=== PATIENT | female | born 2000 | race Caucasian/White ===

== ENCOUNTER 2022-07-12 12:42 | Outpatient (CLI) | payer OTHER, SELFPAY ==
--- NOTE | 2022-07-12 13:00 | CRLHL7_ITS ---
For Patients: As a result of the Century Cures Act, medical imaging exams and procedure reports are released immediately into your electronic medical record. You may view this report before your referring provider. If you have questions, please contact your health care provider. INDICATION: First trimester scan, establish dates. TECHNIQUE: Real-time freire-scale imaging of the pelvis was performed. FINDINGS: Sonographic imaging demonstrates a single living intrauterine gestation. The embryo demonstrates a regular cardiac rate measuring 178 beats per minute. The embryo`s crown-rump length measurement of 3.2 cm corresponds to a gestational age of 10 weeks 1 day with a sonographic due date of 02/06/2023 . Small subchorionic hemorrhage measuring 3.2 x 0.5 x 0.6 centimeters IMPRESSION: Single live intrauterine gestation measuring 10 weeks 1 day with TODD of 02/06/2023 Small subchorionic hemorrhage measuring 3.3 x 0.5 x 0.6 Dictated by Jordana Brunner MD @ 07/12/2022 2:46:39 PM (Electronically Signed)
== END 2022-07-12 12:43 | disposition home or self-care (01) ==
LOC: US 12:43
PROVIDERS: Visit Provider Registered Nurse
DX: Z34.91 Encounter for supervision of normal pregnancy, unspecified, first trimester (principal); Z3A.10 10 weeks gestation of pregnancy
CPT/HCPCS: 76817

== ENCOUNTER 2022-07-12 15:09 | Outpatient (CLI) | payer OTHER, SELFPAY ==
[2022-07-12 19:06] LABS: Hepatitis B Surface Antigen* Negative (Negative)
[2022-07-12 19:16] LABS: HIV 1/2/P24 Combo Screen* Negative (Negative)
[2022-07-12 19:23] LABS: Hepatitis C Virus Antibody* Negative (Negative)
[2022-07-12 21:07] LABS: Chlamydia DNA Amplified* NOT DETECTED (No Detected); GC DNA Amplified* NOT DETECTED (No Detected)
[2022-07-14 17:17] LABS: Rapid Plasma Reagin (RPR) Non Reactive (Non Reactive)
[2022-07-14 18:03] LABS: Varicella-Zoster Virus Ab, IgG 98.6 IV
[2022-07-14 18:10] LABS: Rubella Antibody IgG 45.2 IU/mL
== END 2022-07-12 15:10 | disposition home or self-care (01) ==
PROVIDERS: Visit Provider Registered Nurse
DX: Z34.91 Encounter for supervision of normal pregnancy, unspecified, first trimester (principal); O20.9 Hemorrhage in early pregnancy, unspecified; Z3A.10 10 weeks gestation of pregnancy
CPT/HCPCS: 86592; 86703; 86762; 86787; 86803; 86850; 86900; 86901; 87086; 87340; 87491; 87591

== ENCOUNTER 2022-09-08 10:36 | Outpatient (CLI) | payer OTHER, SELFPAY | END 2022-09-08 10:37 | disposition home or self-care (01) | LOC: NFLDREF 10:37 | PROVIDERS: Visit Provider Registered Nurse | DX: Z34.92 Encounter for supervision of normal pregnancy, unspecified, second trimester (principal); Z3A.17 17 weeks gestation of pregnancy | CPT/HCPCS: 87086 ==

== ENCOUNTER 2022-09-20 11:55 | Outpatient (CLI) | payer OTHER, SELFPAY ==
--- NOTE | 2022-09-20 12:15 | CRLHL7_ITS ---
For Patients: As a result of the Century Cures Act, medical imaging exams and procedure reports are released immediately into your electronic medical record. You may view this report before your referring provider. If you have questions, please contact your health care provider. INDICATION: Evaluate anatomy. COMPARISON: 07/12/2022 TECHNIQUE: Real time freire scale imaging of the fetus was performed as well as color Doppler analysis of the umbilical vessels. FINDINGS: Sonographic imaging demonstrates a single living intrauterine gestation. Fetus demonstrates a regular cardiac rate of 157 beats per minute. Fetus has a breech position. The placenta lies anteriorly. The edge of the placenta appears to extend to the internal cervical os and possibly covers the os. Amniotic fluid volume appears normal. Single deepest vertical pocket: 4.1 cm. The cervix is closed and measures 3.1 cm in length. The composite ultrasound gestational age is calculated at 19 weeks 4 days with an estimated sonographic due date of 02/10/2023. The estimated weight is 307 grams which lies at the 61st %. The following biometric measurements were obtained: Biparietal diameter: 4.4 cm/19 weeks 3 days 50th% Head circumference: 16.6 cm/19 weeks 2 days 38th% Abdominal circumference: 14.6 cm/19 weeks 6 days 61st% Femur length: 3.1 cm/19 weeks 4 days 49th% The HC/AC ratio measures: 1.14 range (1.08-1.26) On anatomic survey, there is a normal appearance of the cerebral ventricles, cavum septi pellucidi, cisterna magna and cerebellum. The nose, lips, and facial profile appear normal. The cervical, thoracic and lumbar spine are well visualized and appear normal. Incomplete evaluation of the sacrum due to position. There is a normal four-chamber heart view and the left and right ventricular outflow tracts appear normal. The diaphragm and stomach appear normal. The kidneys and bladder also appear normal. There is a normal three-vessel cord and cord insertion site. The four extremities appear normal. IMPRESSION: Sonographic gestational age 19 weeks 4 days and sonographic due date 02/10/2023. Good correlation with dates. The anterior placenta appears to extend and possibly cover the internal cervical os. Incomplete evaluation of the sacrum due to position. The remainder of the anatomic survey is normal. Short-term follow-up recommended. Dictated by James Maria MD @ 09/20/2022 1:32:30 PM (Electronically Signed)
== END 2022-09-20 11:56 | disposition home or self-care (01) ==
LOC: US 11:55
PROVIDERS: Visit Provider Registered Nurse
DX: Z34.90 Encounter for supervision of normal pregnancy, unspecified, unspecified trimester (principal); Z3A.19 19 weeks gestation of pregnancy
CPT/HCPCS: 76805; 76817

== ENCOUNTER 2022-09-27 10:46 | Outpatient (CLI) | payer OTHER, SELFPAY ==
--- NOTE | 2022-09-27 11:00 | CRLHL7_ITS ---
For Patients: As a result of the Century Cures Act, medical imaging exams and procedure reports are released immediately into your electronic medical record. You may view this report before your referring provider. If you have questions, please contact your health care provider. INDICATION: Evaluate anatomy. COMPARISON: none TECHNIQUE: Real time freire scale imaging of the fetus was performed as well as color Doppler analysis of the umbilical vessels. FINDINGS: Sonographic imaging demonstrates a single living intrauterine gestation. Fetus demonstrates a regular cardiac rate of 141 beats per minute. Fetus has a vincenzo breech position. The placenta lies anteriorly. The edge of the placenta is located 1.3 cm from the internal cervical os. Amniotic fluid volume appears normal. Single deepest vertical pocket: 5.3 cm. Normal sacrum. IMPRESSION: Normal sacrum. Low lying placenta located 1.3 cm from the internal cervical os. Dictated by James Maria MD @ 09/27/2022 1:03:04 PM (Electronically Signed)
== END 2022-09-27 10:47 | disposition home or self-care (01) ==
LOC: US 10:47
PROVIDERS: Visit Provider Registered Nurse
DX: Z34.90 Encounter for supervision of normal pregnancy, unspecified, unspecified trimester (principal); O44.40 Low lying placenta NOS or without hemorrhage, unspecified trimester; Z3A.00 Weeks of gestation of pregnancy not specified
CPT/HCPCS: 76816

== ENCOUNTER 2022-11-17 10:02 | Outpatient (CLI) | payer OTHER, SELFPAY ==
--- NOTE | 2022-11-17 10:15 | CRLHL7_ITS ---
For Patients: As a result of the Cures Act, medical imaging exams and procedure reports are released immediately into your electronic medical record. You may view this report before your referring provider. If you have questions, please contact your health care provider. INDICATION: Third trimester scan, evaluate growth. LOW LYING PLACENTA VS PREVIA COMPARISON: 09/20/2022, 09/27/2022 TECHNIQUE: Real time freire scale imaging of the fetus was performed. FINDINGS: Sonographic imaging demonstrates a single living intrauterine gestation. Fetus demonstrates a regular cardiac rate of 145 beats per minute. Fetus has a vertex position. The placenta lies anteriorly without evidence of placenta previa. The edge of the placenta is located 4.2 cm from the internal cervical os. Amniotic fluid volume appears normal and there is a single deepest vertical pocket: 5.9 cm. The estimated weight is 1113gm which lies at the 36th %. On the prior OB ultrasound exam dated 09/20/2022 the estimated weight was at the 61st%. BPD 35th percentile. HC 52nd percentile. AC 34th percentile. FL 36th percentile. The HC/AC ratio measures 1.14 range (1.02-1.22). IMPRESSION: Sonographic gestational age 27 weeks 6 days and sonographic due date 02/10/2023. Good correlation with dates. Normal interval growth. Estimated weight 36th percentile. Abdominal circumference 34th percentile. Anterior placenta is located 4.2 cm from the internal cervical os. No previa or low lying placenta. Dictated by James Maria MD @ 11/17/2022 11:19:23 AM (Electronically Signed)
== END 2022-11-17 10:03 | disposition home or self-care (01) ==
LOC: US 10:03
PROVIDERS: Visit Provider Obstetrics & Gynecology
DX: O44.02 Complete placenta previa NOS or without hemorrhage, second trimester (principal); Z3A.27 27 weeks gestation of pregnancy
CPT/HCPCS: 76816; 86592

== ENCOUNTER 2023-01-16 13:38 | Outpatient (CLI) | payer OTHER, SELFPAY ==
[2023-01-17 14:56] LABS: Strep B DNA Probe POSITIVE (Negative)
[2023-01-17 14:57] LABS: Strep B Pen/Amox Allergy No
== END 2023-01-16 13:39 | disposition home or self-care (01) ==
LOC: NFLDREF 13:38
PROVIDERS: Visit Provider Advanced Practice Midwife
DX: Z34.93 Encounter for supervision of normal pregnancy, unspecified, third trimester (principal); Z3A.36 36 weeks gestation of pregnancy
CPT/HCPCS: 87081; 87653

== ENCOUNTER 2023-02-19 00:46 | Inpatient (IN) | payer OTHER, SELFPAY ==
[2023-02-18 22:40] VITALS: BP 136/83; PULSE 76; RESP 16; TEMP 36.6
[2023-02-18 22:41] VITALS: PULSE 90; O2SAT 97
[2023-02-18 22:46] VITALS: PULSE 82; O2SAT 97
[2023-02-19] VITALS (68 sets, daily range): BP systolic 97–138; BP diastolic 55–90; PULSE 58–95; RESP 16–18; TEMP 36.5–37; O2SAT 93–100; BMI 23.2
[2023-02-19] MEDS: hydrOXYzine pamoate 25 MG CAPSULE 100 MG PO (01:33)
[2023-02-19] MEDS: MORPHINE 10 MG/ML inj IM (01:35)
[2023-02-19 02:16] LABS: Basophils Percent Auto 0.2 % (0.0-3.0); Eosinophils Percent Auto 0.2 % (0.0-7.0); Hematocrit 40.1 % (33.0-51.0); Hemoglobin* 13.4 gm/dL (12.0-16.0); Immature Granulocytes Pct Auto 0.4 %; Lymphocytes Percent Auto 16.9 % (20-44); Mean Corpuscular HGB Conc 33 gm/dL (32-36); Mean Corpuscular Hemoglobin 30 pg (26-34); Mean Corpuscular Volume 89 fL (80-100); Monocytes Percent Auto 9.8 % (0.0-11.0); Neutrophils Percent Auto 72.5 % (42.0-72.0); Platelet Count* 230 K/uL (140-440); RDW Coefficient of Variation % 13.7 % (11.5-15.5); Red Blood Count 4.49 m/uL (4.00-5.20); White Blood Count* 13.22 K/uL (4.50-11.00)
[2023-02-19 02:21] LABS: Slide Review Reflex No
[2023-02-19] MEDS: LACTATED RINGERS 1000 ML 1,000 ML 125 ML IV ×2 (03:05→12:54)
[2023-02-19] MEDS: AMPICILLIN 2 GM in 0.9 % SODIUM CHLORIDE Mini-bag 100 ML IVPB (03:05)
[2023-02-19] MEDS: AMPICILLIN 1 GM in 0.9 % SODIUM CHLORIDE Mini-bag 100 ML IVPB ×2 (07:13→10:50)
--- NOTE | 2023-02-19 07:17 | P.LDBA_ITS ---
Subjective History of Present Illness Narrative: Mey is a 22 year old at 41 1/7 weeks gestation being admitted to Labor and Delivery for spontaneous onset of labor that began yesterday afternoon. She presented early this morning for rule out labor with cervical change noted from Sunday evening. She was given morphine and Vistaril at time of admission for her to rest. She reports she was able to get some sleep but that her contractions have spaced out. She does feel they are more painful or noticeable than prior but is able to talk through them. She plans to do the labor warm-up this morning. Her full history and physical was dictated by LUIS ENRIQUE Cox on 01/26/23. Please see this for details. OB PROBLEM LIST 1. GURU 3.2 x 0.5 x 0.6, not noted on follow-up US 2. Varicella nonimmune. Rec PP vaccine. 3. Placenta low-lying vs. previa: RESOLVED * The edge of the placenta appears to extend to the internal cervical os and possibly covers the os. Pelvic rest. Contact us with vaginal bleeding. * Follow up 09/27/22: anterior placenta 1.3 cm from os * F/u US at 28 weeks: Placenta 4.2cm away from cervix, resolved! EFW: 36%, Vx, sdp: 5.9cm 4. GBS positive. Flu: received Covid: completed and boosted x 2 TDAP: 12/08/2022. OB - Problem Based A/P Additional Plan (1) Spontaneous onset of labor: Status: Acute (2) Post term at 41 weeks gestation: Status: Acute (3) Pain during labor: Status: Acute (4) Group B Streptococcus carrier state affecting : Status: Acute Plan ASSESSMENT:? 22 at 41 1/7 weeks gestation? complicated by:?resolved low lying placenta, varicella non-immune Labor type: Spontaneous, Early labor? FHR reassuring, NST on admission reactive Labor complicated by: none? GBS positive? ? PLAN:? 1. Routine intrapartum cares as ordered. Continue with expectant management, encouraged labor warm up to assist in spontaneous labor progression. Will consider augmentation with AROM or pitocin if no change by afternoon. 2. Monitoring per policy, intermittent? 3. Planning unmedicated initially, per clinic notes but did ask for epidural on admission. She is considering epidural but currently open to movement. Was given morphine and Vistaril on admission with good relief. Candidate for analgesia of choice if desired. 4. Patient encouraged to reposition and ambulate to promote physiologic labor and .? 5. GBS prophylaxis initiated for GBS positive status, started on admission. Will treat with antibiotics per protocol. 6. Anticipate ? Delivery/Labor/Induction Plan Plan: expectant management OB Exam Physical Exam Vital signs: Temp Pulse Resp BP Pulse Ox 97.8 F 69 18 126/68 100 02/19/23 05:38 02/19/23 07:10 02/19/23 05:38 02/19/23 07:10 02/19/23 05:37 Narrative: Vitals Reviewed Constitutional:? Alert and oriented x3 HEENT:? Normocephalic, atraumatic Neck:? Supple Lungs:? Clear to auscultation bilaterally Heart:? Regular rate and rhythm, no murmur, rub or gallop Abdomen:? Soft, nontender, and gravid. Vertex by Silvestre's, confirmed with cervical exam. Extremities:? No edema or erythema Cervix: 5 cm/60%/0 station/vertex per RN; Cephalic via leopolds Status: Intermittent auscultation, NST on admission reactive at 0200 am. FHR 135 by auscultation, with accelerations, no decelerations present per RN. Detailed Labor and Delivery Exam Patient Gravid: Yes Contraction Frequency: 5-7 Contraction intensity: Mild Fetus (Single) Amniotic Membrane Status: intact Monitor Accelerations: Absent
[2023-02-19] MEDS: ONDANSETRON 2 MG/ML inj 4 MG IV (08:54)
[2023-02-19] MEDS: LIDOCAINE 2% (PF) 5 ML VIAL EPIDURAL (10:07)
[2023-02-19] MEDS: ROPIVACAINE 0.2% 100 ml 100 ML 12 MG EPIDURAL (10:12)
[2023-02-19] MEDS: LACTATED RINGERS 1000 ML 1,000 ML 999 ML IV ×2 (10:14→11:44)
--- NOTE | 2023-02-19 10:17 | P.ANBPRC_ITS ---
[facility] Medical History (Updated 02/19/23 @ 07:33 by Rachel Pardo CNM) Placenta previa ?O44.00 - Complete placenta previa NOS or without hemorrhage, unspecified trimester (ICD-10) Surgical History No pertinent past surgical history ?Z78.9 - Other specified health status (ICD-10) Family History Other No significant past surgical history Social History Smoking Status: Never smoker Little interest or pleasure in doing things: several days Feeling down, depressed, or hopeless: not at all Meds Home Medications and Allergies Home Medications Medication Instructions Recorded Confirmed Type prenat.vits,hanna,[id number] 1 tab PO QDAY 07/12/22 02/18/23 History Allergies Allergy/AdvReac Type Severity Reaction Status Date / Time No Known Drug Allergies Allergy Verified 02/17/23 07:41 Results Labs Labs: Laboratory Results - last 24 hr 02/19/23 02:00 WBC 13.22 H RBC 4.49 Hgb 13.4 Hct 40.1 MCV 89 MCH 30 MCHC 33 RDW Coeff of Alejo 13.7 Plt Count 230 Neut % (Auto) 72.5 H Lymph % (Auto) 16.9 L Russell % (Auto) 9.8 Eos % (Auto) 0.2 Baso % (Auto) 0.2 Neut # (Auto) 9.60 H Lymph # (Auto) 2.20 Russell # (Auto) 1.30 H Eos # (Auto) 0.00 Baso # (Auto) 0.00 Blood Type A Positive Antibody Screen NEGATIVE Vital Signs Vital Signs: Last Vital Signs Temp 97.9 F 02/19/23 10:16 Pulse 68 02/19/23 10:17 Resp 16 02/19/23 10:16 BP 120/74 02/19/23 10:17 Pulse Ox 100 02/19/23 10:16 Weight: 75.659 kg Height: 180.34 cm Anesthesia Procedures Epidural Insertion Patient Location: OB Start Time: 09:57 Stop Time: Start Date: 02/19/23 Stop Date: 02/19/23 Reason for Block: primary anesthetic Patient Position: sitting Performed By: Esau Michel Preanesthetic Checklist: IV checked, risks and benefits discussed, surgical consent, monitors and equipment checked, pre-op evaluation, timeout performed and anesthesia consent Prep: chlorhexidine gluconate Monitoring: blood pressure monitoring, industrial custodian, continuous pulse oximetry and heart rate Approach: midline Vertebral Space: lumbar (1-5) Needle Type: Tuohy needle Injection Technique: continuous catheter (catheter) Needle gauge: 17 Needle Length (cm): 10 cm Needle Insertion Depth (cm): 5 Catheter Gauge: 19 Catheter Type: multi-orifice Catheter at skin depth (cm): 10 Test Dose Result: negative and lidocaine 1.5% with epinephrine 1 to 200,000
[2023-02-19] MEDS: OXYTOCIN 30 unit/500 ML in NS 30 UNIT/500 ML BAG 300 UNIT IVPB (15:30)
--- NOTE | 2023-02-19 16:25 | W.PM.OBVAGDE ---
OB Procedure Vag Delivery Mother Details Mother Details: The patient is a 22 year-old, 1, Para 0, admitted on 02/19/23 at 41 1/7 Days gestation. : 1 Para: 0 Weeks Gestation: 41 Admission Date: 02/19/23 Additional Details Amniotic Membrane Status: SROM Amniotic Membrane Rupture Date: 02/19/23 Amniotic Membrane Rupture Time: 13:46 Amniotic Membrane Fluid Description: Clear Analgesia/Anesthesia Type: Epidural Waterbirth: No Pitcoin: Yes ([facility] only) Intrapartal Events: None Labor Onset: 09:35 Complete: 13:03 Pushin:46 Heart: heart tones during second stage were reassuring with variables present during the last hour of pushing. FHT remained moderately variable with good return to baseline between contractions with terminal bradycardia. Delivery Details Delivery Date: 02/19/23 Delivery Time: 15:29 Route of delivery: Infant Gender: Female Infant Viability: Alive; Heart Rate Present Position at Delivery: OA Delivery Details: Patient was admitted for spontaneous onset of labor. Initially, she was given morphine and Vistaril where her contractions drastically slowed but she was able to rest. This morning she was able to do a labor warmup and labor progressed normally. SROM occurred with pushing, clear fluid. Patient was complete at 1303 and pushing at 1346. Upon CNM arrival, membrane was bulging at vaginal opening and slowly became more evident with contractions alone. Patient was not feeling much vaginal pressure, her epidural was very dense. This allowed the baby to naturally move down. She began pushing with urge after about 40 minutes. of a viable female at 1529 in semifowlers in the bed. Vertex delivered OA. Nuchal cord noted with delivery of head, easily reduced. No shoulder. Body delivered easily and without incident. Infant passed to mothers abdomen with a vigorous cry. Cord was clamped and cut at > 5 minutes. APGARS were 8 at one minute and 9 at five minutes respectively. Mouth was bulb suctioned. Intact placenta with a 3 vessel cord delivered spontaneously at 1537. Fundus firm. Intact perineum was identified, small left periurethral abrasion not repaired. QBL 150 cc. Mother and baby stable; mother plans to breastfeed. Infant weight pending. GBS adequately treated during labor. 1 Minute Interval Total Score: 8 5 Minute Interval Total Score: 9 Additional Details Shoulder Dystocia: No Placenta Delivery Time: 15:37 Placental Delivery Description: Spontaneous Procedure Done: Global Blood Loss: 150 Laceration: Periurethral - 1st Degree (not repaired) Blood Loss Measurement Type: QBL Bakri Used: No Sponge/Need Count Correct: Yes Cord Vessel Description: 3 Vessels, Nuchal Cord and Reduced Event Summary Status: Mother and were stable after delivery. Disposition: floor
[2023-02-19] MEDS: ACETAMINOPHEN 500 MG TABLET 1000 MG PO (18:55)
[2023-02-19] MEDS: IBUPROFEN 600 MG TABLET PO (23:19)
[2023-02-20 03:36] VITALS: BP 99/61; PULSE 58; RESP 16; TEMP 36.5; O2SAT 97
--- NOTE | 2023-02-20 07:47 | P.OBPN_ITS ---
OB - PN:Subj Subjective Date Seen: 02/20/23 Patient comments OB post-: no complaints, pain well controlled, tolerating diet and flatus present [place] status: and doing well [place] feeding status: exclusively Narrative: Day 1:? Vaginal Delivery at 41 and 1/7 weeks.? ?? Complications:? none? The patient feels well.? The pain is well controlled with current medications.? She has no new complaints.? Urinary output is adequate and she is voiding without difficulty.? Has a good appetite, is tolerating a general diet, is passing flatus, and has not had a bowel movement.? Has scant amount of rubra lochia.? She is ambulating well.? OB - PN: Obj Exam Physical Exam: Vital signs: Temp Pulse Resp BP Pulse Ox O2 Del Method 97.7 F 58 L 16 99/61 97 Room Air 02/20/23 03:36 02/20/23 03:36 02/20/23 03:36 02/20/23 03:36 02/20/23 03:36 02/20/23 03:36 Narrative: GENERAL APPEARANCE:? normal affect, alert, no distress? MOOD:? appropriate? CHEST:? clear to auscultation and percussion? HEART:? regular rate and rhythm? ABDOMEN:? soft, non-tender the uterine fundus is U/3 and is appropriate for the stage of recovery.? PERINEUM:? mild edema of the perineum, there is a 1st degree that is healing well.? EXTREMITIES:? normal and no edema? OB - PN: A/P Vaginal Delivery Assessment and Plan (1) Spontaneous onset of labor: Status: Resolved (2) Post term at 41 weeks gestation: Status: Resolved (3) Pain during labor: Status: Resolved (4) care following vaginal delivery: Status: Acute (5) Lactating mother: Status: Acute Plan day: 1 Plan: routine care Comments: Anticipate discharge home tomorrow.
[2023-02-20 07:49] VITALS: BP 106/73; PULSE 73; RESP 16; TEMP 36.5; O2SAT 97
[2023-02-20] MEDS: DOCUSATE SODIUM 100 MG CAPSULE PO (08:01)
[2023-02-20] MEDS: IBUPROFEN 600 MG TABLET PO (08:01)
[2023-02-20 12:31] VITALS: BP 114/69; PULSE 76; RESP 16; TEMP 36.5; O2SAT 97
[2023-02-20 15:44] VITALS: BP 117/75; PULSE 82; RESP 16; TEMP 36.5; O2SAT 97
[2023-02-20] MEDS: LANOLIN CREAM 1 APPLIC TOPICAL (17:41)
[2023-02-20] MEDS: ACETAMINOPHEN 500 MG TABLET 1000 MG PO (20:50)
[2023-02-20 23:42] VITALS: BP 107/71; PULSE 64; RESP 16; TEMP 36.6; O2SAT 97
[2023-02-21 07:30] VITALS: BP 113/76; PULSE 66; RESP 16; TEMP 36.7; O2SAT 99
--- NOTE | 2023-02-21 07:43 | PM.OBDSVD1 ---
DS: Providers Provider Time Seen by Provider: 07:43 Date Seen: 02/21/23 Date of admission: 02/19/23 00:46 Primary care physician: Not a Local Provider Admitting Clinician: Leora Dsouza CNM Attending Physician on discharge: Leora Dsouza CNM Date of Discharge: 02/21/23 DS: Diagnosis Discharge Diagnosis (1) care following vaginal delivery: Status: Acute (2) Lactating mother: Status: Acute (3) Normal spontaneous vaginal delivery: Status: Acute Exam Narrative: Exam Narrative: VSS, afebrile GENERAL APPEARANCE: ?normal affect, alert, no distress MOOD: ?appropriate HEENT: normocephalic, neck supple, full ROM CHEST: ?Symmetrical chest wall movement. ?Normal respiratory effort. ?Clear to auscultation HEART: ?regular rate and rhythm ABDOMEN: ?soft, non-tender. Uterine fundus is firm, 4 fingerbreadths below Umbilicus, Midline and is appropriate for the stage of recovery. ?Bowel sounds present. PERINEUM: ?mild edema of the perineum, there is a periurethral laceration that is healing well. EXTREMITIES: ?normal and no edema Const: Vital Signs, click to edit/add: Vital Signs - 24 hr 02/20/23 07:49 02/20/23 12:31 02/20/23 15:44 Temperature 97.7 F 97.7 F 97.7 F Pulse Rate [Pulse Oximeter] 73 76 82 Respiratory Rate 16 16 16 Blood Pressure [Le ft Arm] 106/73 114/69 117/75 Pulse Oximetry 97 97 97 Oxygen Delivery Me thod Room Air Room Air Room Air 02/20/23 23:42 Temperature 97.8 F Pulse Rate [Pulse Oximeter] 64 Respiratory Rate 16 Blood Pressure [Le ft Arm] 107/71 Pulse Oximetry 97 Oxygen Delivery Me thod Room Air Documenting provider has reviewed patient's vital signs: yes OB - DS: Summary Hospital Course Hospital Course: Mey is a 22 y.o. G 1 P 1 who was admitted to [facility] for labor. ?She had an uncomplicated NVD The patient feels well. ?The pain is well controlled with current medications. ?She has no new complaints. ?She is breast feeding and reports things are going ok. Would like to see prior to discharge.? the patient has done well.? Vitals have been stable.? She has remained afebrile.? Has a good appetite, is tolerating a general diet. ?She is voiding without difficulty.? She is passing gas.? She is ambulating and denies any dizziness.? Has Small amount of rubra lochia. She is undecided about prevention method. Problems: None plan: Discharge home with baby. Follow up in 2 weeks and 6 weeks. , may follow up with if needed Peripartum Data Infant delivery method: Vaginal Laceration description: Periurethral - 1st Degree complications: none [place] Infant Gender: Female Infant Discharge Plan: Home Status at Discharge Functional status at discharge: independent ambulation Overall status at discharge: patient is progressing back to baseline Time Spent with Patient Time attestation: Total time spent providing and/or coordinating discharge services: Time spent: Less than 30 minutes Discharge Plan Discharge Disposition: Home, Self-Care Date of Admission: 02/19/23 00:46 Attending Provider on Discharge: Rachell Beverly Primary Care Provider: Provider,Not a Local Condition: Stable Anticipated Discharge Date/Time: 02/21/23 11:47 Discharge Medications: New docusate sodium 100 mg Capsule 100 mg PO BID PRNQty: 100 0RF Rx Instructions: Take 1 cap 1-2 times a day as needed for constipation. ibuprofen 600 mg Tablet 600 mg PO Q6H PRNQty: 60 0RF Continued (DME) breast pump Device See Rx Instructions .Route Qty: 1 0RF Rx Instructions: As directed prenat.vits,hanna,[id number] Tablet 1 tab PO QDAY Discharge Orders: Discharge Order (Routine); Ordered 02/21/23 Ordered By: Rachell Beverly Patient Education: OB Over the Counter Medication Information, OB Vaginal/Breast Feeding Additional Instructions: Follow up in 2 weeks and 6 weeks. Activity Level: Activity as Tolerated Discharge Diet: Regular Follow Up Appointments: Provider,Not a Local [Primary Care Provider] - Forms: [employer] Info Instructions
[2023-02-21] MEDS: DOCUSATE SODIUM 100 MG CAPSULE PO (07:48)
[2023-02-21] MEDS: IBUPROFEN 600 MG TABLET PO (07:48)
== END 2023-02-21 10:40 | disposition home or self-care (01) | DRG 807 ==
LOC: OB OUT 00:46 → OB 00:46
PROVIDERS: Admitting Provider Advanced Practice Midwife; Visit Provider Advanced Practice Midwife
DX: O48.0 Post-term pregnancy (principal); Z37.0 Single live birth; O99.824 Streptococcus B carrier state complicating childbirth; O70.0 First degree perineal laceration during delivery; Z28.39 Other underimmunization status; Z3A.41 41 weeks gestation of pregnancy
CPT/HCPCS: 01967; 36415; 85025; 86850; 86900; 86901; 99213; A9270; J0290; J2270; J2370; J2405; J2795; J7120